=== PATIENT | female | born 1990 | race Caucasian/White ===

== ENCOUNTER 2017-02-07 17:21 | Emergency (ER) | payer MEDICAID ==
[2015-12-06 08:17] VITALS: BMI 26.6
[~2017-02-07 17:21] MED LIST: ACETAMINOPHEN500 M1 PO; CLEOCIN HCL150 MG PO; HYDROCODON-ACE1 EAC7 PO; HYDROCODONE-APA1 TAB PO; IBUPROFEN600 MG PO; PERCOCET 5-3251 TAB PO
== END 2017-02-07 20:57 | disposition home or self-care (01) ==
LOC: D.ER 17:21
DX: S16.1XXA Strain of muscle, fascia and tendon at neck level, initial encounter (principal); Y04.2XXA Assault by strike against or bumped into by another person, initial encounter; Y93.89 Activity, other specified; Y92.89 Other specified places as the place of occurrence of the external cause; R51 Headache; J06.9 Acute upper respiratory infection, unspecified; F17.200 Nicotine dependence, unspecified, uncomplicated